=== PATIENT | female | born 1985 | race African-American/Black ===

== ENCOUNTER 2016-07-11 11:25 | Emergency (ER) | payer OTHER ==
[~2016-07-11] VITALS: Ht 167.6 cm; Wt 77.1 kg
[~2016-07-11 11:25] MED LIST: CYCLOBENZAPRINE10 M1 PO; NORVASC 5MG TAB5 MG PO; PERCOCET 325 MG1 TA2 PO; VICODIN 5-3001 EACH PO
[2016-07-11 13:52] LABS: ABSOLUTE BASOPHIL COUNT 0 /CUMM (0.0-0.2)
[2016-07-11 13:57] LABS: HEMATOCRIT 40.4 % (37-47); RED BLOOD CELL CT 4.24 /CUMM (4.20-5.40); WHITE BLOOD CELL COUNT 7.2 /CUMM (4.8-10.8)
[2016-07-11 14:08] LABS: ABSOLUTE EOSINOPHIL COUNT 0.1 /CUMM (0.0-0.7); ABSOLUTE GRANULOCYTE CT 4.2 /CUMM (1.4-6.5); ABSOLUTE LYMPH COUNT 2.4 /CUMM (1.2-3.4); ABSOLUTE MONOCYTE COUNT 0.6 /CUMM (0.10-0.60); BASOPHIL % 0.5 % (0.0-2.0); EOSINOPHIL % 0.8 % (0-5); GRANULOCYTE % 57.6 % (42.2-75.2); MEAN CORPUSCULAR HGB 31.8 PG (27.0-31.0); MEAN CORPUSCULAR HGB CONC 33.3 G/DL (33.0-37.0); MEAN CORPUSCULAR VOLUME 95.3 FL (81.0-99.0); MEAN PLATELET VOLUME 8.2 FL (7.4-10.4); PLATELET COUNT 248 /CUMM (130-400); RBC DISTRIBUTION WIDTH 13.1 % (11.5-14.5)
[2016-07-11 14:18] LABS: PT 11.5 SEC (9.4-12.5); PTT 29 SEC (25-37)
--- NOTE | 2016-07-11 15:05 | ULTRASOUND REPORT ---
EXAMINATION: US TRIPLEX LOWER EXTREMITY, BILATERAL CLINICAL INFORMATION: Bilateral calf pain. COMPARISON: None. TECHNIQUE: Color-flow triplex imaging with spectral analysis and compression Doppler were performed on the bilateral lower extremities. FINDINGS: Respiratory variation, normal compression and augmented flow are noted throughout the bilateral lower extremities. The visualized common femoral vein, proximal greater saphenous vein, femoral vein, profunda femoral vein, popliteal vein and visualized mid calf venous segments show no evidence of deep venous thrombosis. There is no Quinteros's cyst. IMPRESSION: Normal triplex scan without evidence of deep venous thrombosis involving the bilateral lower extremities.
--- NOTE | 2016-07-11 15:08 | ED GENERAL ADULT ---
History of Present Illness General Chief Complaint: General Adult Stated Complaint: BACK,NECK, BREAST SWELLING X TODAY,EASY BRUISING Source: patient Exam Limitations: no limitations Vital Signs & Intake/Output Vital Signs & Intake/Output Vital Signs Date Time Temp Pulse Resp B/P Pulse O2 O2 Flow FiO2 Ox Delivery Rate 07/11 1602 66 18 178/110 98 07/11 1308 96 Room Air 07/11 1214 97.2 77 16 181/139 99 Room Air Allergies Coded Allergies: NO KNOWN ALLERGIES (12/06/15) Reconcile Medications Amlodipine (Norvasc 5MG Tab) 5 MG TAB 1 TAB PO DAILY HYPERTENSION Triage Note: PT STATES "MY TITTYS HURT". PT ALSO STATES SHE IS "PUKING VOMIT AND WHEN I HIT MYSELF I TURN BLACK AND BLUE INSTANTLY, SOMETHING HAS TO BE WRONG WITH ME". Triage Nurses Notes Reviewed? yes : No Patient currently breastfeeds: No HPI: This patient is a 31-year-old female with an unremarkable past medical history who presented to the emergency department today for evaluation of multiple complaints. The patient reported that over the last couple months she has been feeling fatigued and achy all over. The patient reported that she feels aching in her chest, shoulders, back, abdomen, and legs. The patient reported that she feels like her chest is more swollen than normal. She reported chest pain with inspiration which gets up to a 7 out of 10. The patient denied any cough, hemoptysis, fevers, chills, headache, visual changes, shortness of breath, abdominal pain, nausea, vomiting. She is reporting bilateral calf pain. No unilateral leg swelling or calf swelling. The patient denied history of any blood clots. She is not currently on any control. (JUANCHO DOUGLAS PA-C) Past History Travel History Traveled to [place] past 21 day No Medical History Any Pertinent Medical History? see below for history Neurological: NONE EENT: NONE Cardiovascular: hypertension Respiratory: NONE Gastrointestinal: NONE Hepatic: NONE Renal: NONE Musculoskeletal: NONE Psychiatric: NONE Endocrine: NONE Blood Disorders: NONE Cancer(s): NONE AIRCRAFT SERVICER/Reproductive: NONE Surgical History Surgical History: Psychosocial History What is your primary language Hebrew Tobacco Use: Current Not Daily Daily Tobacco Use Amount/Type: => 5 Cigarettes daily ETOH Use: occasional use Illicit Drug Use: denies illicit drug use Family History Hx Contributory? No (JUANCHO DOUGLAS PA-C) Review of Systems Review of Systems Constitutional: Reports: no symptoms. EENTM: Reports: no symptoms. Respiratory: Reports: see HPI. Cardiovascular: Reports: see HPI. GI: Reports: no symptoms. Genitourinary: Reports: no symptoms. Musculoskeletal: Reports: see HPI. Skin: Reports: no symptoms. Neurological/Psychological: Reports: no symptoms. All Other Systems: Reviewed and Negative (JUANCHO DOUGLAS PA-C) Physical Exam Physical Exam General Appearance: well developed/nourished, alert, awake, anxious Comments: Well-developed well-nourished person in no acute distress HEENT: Normal EENT exam, head normocephalic, moist mucous membranes Pupils equally round and reactive to light. Neck: Supple no lymphadenopathy Back: Normal gait. Normal inspection. No midline tenderness Cardiovascular: Regular rate and rhythm with no murmurs, rubs, or gallops Respiratory: Chest nontender. No respiratory distress. Breath sounds clear to auscultation bilaterally with no wheezes, rales, rhonchi Abdomen: Soft, nontender and nondistended with normoactive bowel sounds Extremity: No edema, no calf tenderness to palpation, positive Homans sign bilaterally, normal and equal pulses. Neuro: Alert oriented x3, cranial nerves II through XII grossly intact. Skin: No appreciable rash on exposed skin, skin is warm and dry. Psych: Mood and affect is normal Core Measures ACS in differential dx? Yes CVA/TIA Diagnosis: No Severe Sepsis Present: No Septic Shock Present: No (JUANCHO DOUGLAS PA-C) Progress Differential Diagnoses I considered the following diagnoses in my evaluation of the patient: [DVT, PE, ACS, anemia, mononucleosis] Plan of Care: Orders Procedure Date/time Status Add-on Test (ER Only) 07/11 1422 Active EKG 07/11 1413 Active TROPONIN LEVEL 07/11 1343 Complete D-DIMER 07/11 1343 Complete URINE 07/11 1332 Complete URINALYSIS 07/11 1332 Complete TOTAL IRON BINDING CAPACITY 07/11 1332 Complete PARTIAL THROMBOPLASTIN TIME 07/11 1332 Complete PROTHROMBIN TIME 07/11 1332 Complete FERRITIN 07/11 1332 Complete SERUM IRON 07/11 1332 Complete COMPREHENSIVE METABOLIC PANEL 07/11 1332 Complete CBC WITHOUT DIFFERENTIAL 07/11 1332 Complete Laboratory Tests 07/11/16 1420: Anion Gap 8, Estimated GFR > 60, BUN/Creatinine Ratio 11.1, Glucose 79, Calcium 8.9, Iron 85, TIBC 310, Ferritin 29.0, Total Bilirubin 0.5, AST 24, ALT 33, Alkaline Phosphatase 50, Troponin I < 0.01, Total Protein 7.3, Albumin 4.3, Globulin 3.0, Albumin/Globulin Ratio 1.4 07/11/16 1413: Troponin I Cancelled, D-Dimer Cancelled 07/11/16 1345: Urinalysis LIGHT H, Urine Color YEL, Urine Clarity CLEAR, Urine pH 7.5, Ur Specific [place] 1.015, Urine Protein NEG, Urine Ketones NEG, Urine Nitrite NEG, Urine Bilirubin NEG, Urine Urobilinogen 0.2, Ur Leukocyte Esterase SMALL H, Ur Microscopic SEDIMENT EXAMINED, Urine WBC 5-10 H, Ur Epithelial Cells RARE, Urine Hemoglobin NEG, Urine Glucose NEG, Urine Test NEGATIVE 07/11/16 1343: PT 11.5, INR 1.10, APTT 29, D-Dimer < 200, CBC w Diff NO MAN DIFF REQ, RBC 4.24, MCV 95.3, MCH 31.8 H, RDW 13.1, MPV 8.2, Gran % 57.6, Lymphocytes % 32.8, Monocytes % 8.3, Eosinophils % 0.8, Basophils % 0.5, Absolute Granulocytes 4.2, Absolute Lymphocytes 2.4, Absolute Monocytes 0.6, Absolute Eosinophils 0.1, Absolute Basophils 0, PUBS MCHC 33.3 Diagnostic Imaging: Viewed by Me: Ultrasound. Discussed w/RAD: Ultrasound. Radiology Impression: PATIENT: OSCAR THOMAS PRESENT AGE: 31 PATIENT ACCOUNT NO: [id number] : 86 LOCATION: [facility] ORDERING PHYSICIAN: JUANCHO DOUGLAS PA-C SERVICE DATE: 07/11/16 EXAM TYPE: US - US-EXT BILAT VENOUS DOPPLER EXAMINATION: US TRIPLEX LOWER EXTREMITY, BILATERAL CLINICAL INFORMATION: Bilateral calf pain. COMPARISON: None. TECHNIQUE: Color- flow triplex imaging with spectral analysis and compression Doppler were performed on the bilateral lower extremities. FINDINGS: Respiratory variation, normal compression and augmented flow are noted throughout the bilateral lower extremities. The visualized common femoral vein, proximal greater saphenous vein , femoral vein, profunda femoral vein, popliteal vein and visualized mid calf venous segments show no evidence of deep venous thrombosis. There is no Quinteros's cyst. IMPRESSION: Normal triplex scan without evidence of deep venous thrombosis involving the bilateral lower extremities. DICTATED BY: DAVID SANDOVAL MD DATE/ TIME DICTATED:07/11/161500 SERVICES REP:YUNIOR DATE/TIME TRANSCRIBED: 07/11/161500 CONFIDENTIAL, DO NOT COPY WITHOUT APPROPRIATE AUTHORIZATION. < Electronically signed in Other Vendor System> SIGNED BY: DAVID SANDOVAL MD 07/11/16 5425 Initial ED EKG: normal axis, normal intervals, normal sinus rhythm, no ST T wave changes, 60 bpm Comments: 07/11/2016 4:14:19 PM: Discussed all of this patient's imaging and laboratory results with her. She is currently resting on the stretcher in no acute distress. Nontoxic appearing. I spoke with registration regarding having [facility] practice call this patient to schedule her for an appointment with a primary care physician. The patient is in agreement with this plan. Stable for discharge home. (JUANCHO DOUGLAS PA-C) Departure Departure Disposition: HOME OR SELF CARE Condition: Stable Clinical Impression Primary Impression: Body aches Referrals: PATIENT HAS NO PRIMARY CARE DR (PCP/Family) Additional Instructions: Please make an appointment with a primary care physician as discussed; they will be calling to schedule an appointment with you over the next couple of days. Rest and be sure to stay hydrated. Return to the emergency department for any worsening symptoms or concerns. Departure Forms: Customer Survey General Discharge Information (JUANCHO DOUGLAS PA-C) PA/CIRCUIT WALKER Co-Sign Statement Statement: ED Attending supervision documentation- [] I saw and evaluated the patient. I have also reviewed all the pertinent lab results and diagnostic results. I agree with the findings and the plan of care as documented in the PA's/CIRCUIT WALKER's documentation. [x] I have reviewed the ED Record and agree with the PA's/CIRCUIT WALKER's documentation. [] Additions or exceptions (if any) to the PAs/CIRCUIT WALKER's note and plan are summarized below: [] (OMID ROMERO,ABI) Critical Care Note Critical Care Note Critical Care Time: non-applicable (JUANCHO DOUGLAS PA-C)
[2016-07-11 16:02] VITALS: BP 178/110
== END 2016-07-11 16:39 ==
LOC: ERH 11:25
PROVIDERS: Physician Assistant
DX: R52 Pain, unspecified (principal)
CPT/HCPCS: 81001; 81025; 93005; 93010; 93970